=== PATIENT | male | born 2000 | race Two or more races ===

== ENCOUNTER 2023-04-16 00:17 | Emergency (ER) | payer MEDICAID ==
[~2023-04-16] VITALS: Ht 182.9 cm; Wt 96.9 kg
[2023-04-16 00:28] VITALS: BP 127/76; PULSE 74; RESP 17; TEMP 98; O2SAT 100
[2023-04-16] MEDS ORDERED: MUPI2OIN2 EX (02:08)
[2023-04-16] MEDS ORDERED: CEPH500C PO (02:08)
[2023-04-16] MEDS ORDERED: IBUP1TAB5 PO (02:08)
[2023-04-16] MEDS ORDERED: HYDROcodone-ACET 5/325MG TAB PO ONE (02:15)
[2023-04-16] MEDS ORDERED: NEOMYCIN-BACITRACIN-POLYM UNITDOSE PKG TOP OINT TOP ONE (02:15)
== END 2023-04-16 02:03 | disposition home or self-care (01) ==
LOC: ER 00:17
DX: L60.0 Ingrowing nail (principal); L08.9 Local infection of the skin and subcutaneous tissue, unspecified
CPT/HCPCS: 11730